=== PATIENT | male | born 1990 | race Caucasian/White ===

== ENCOUNTER 2016-04-13 19:37 | Emergency (ER) | payer BC ==
[~2016-04-13] VITALS: Ht 182.9 cm; Wt 95.3 kg
[2016-04-13 19:56] VITALS: BP 145/104
[2016-04-13 20:05] LABS: AMP/METHAMP Negative (Negative); BARBITURATES Negative (Negative); BENZODIAZEPINES Negative (Negative); COCAINE Negative (Negative); METHADONE Negative (Negative); OPIATES Negative (Negative); PCP Negative (Negative); THC Negative (Negative)
[2016-04-13 20:07] LABS: ABSOLUTE NEUTROPHILS 9.2 thou/uL (1.4-8.2); BASOPHILS 1.1 % (0.0-2.0); EOSINOPHILS 1.9 % (0.0-3.0); HEMATOCRIT 50.5 % (42.0-52.0); HEMOGLOBIN 17.8 gm/dL (14.0-18.0); LYMPHOCYTES 18.8 % (24.0-44.0); MCH 29.7 pg (26.0-34.0); MCHC 35.3 % (28.0-37.0); MCV 84.1 fL (80.0-100.0); MONOCYTES 6.1 % (1.0-8.0); PLATELET COUNT 418 thou/uL (150-400); POLYS 72.1 % (36.0-66.0); RDW 12.1 % (10.5-14.5); WBC 12.8 thou/uL (4.0-11.0)
[2016-04-13 20:10] LABS: MANUAL DIFF NO
[2016-04-13 20:15] LABS: CALCIUM 9.6 mg/dL (8.5-10.1); POTASSIUM 3.8 mmol/L (3.5-5.1)
[2016-04-13 20:21] LABS: ALBUMIN 4.9 g/dL (3.4-5.0); TOTAL BILIRUBIN 0.5 mg/dL (<0.1-1.0)
== END 2016-04-13 20:15 | disposition home or self-care (01) ==
LOC: ER 19:37
PROVIDERS: Emergency Medicine
DX: R45.851 Suicidal ideations (principal); F32.9 Major depressive disorder, single episode, unspecified; F10.99 Alcohol use, unspecified with unspecified alcohol-induced disorder; F12.10 Cannabis abuse, uncomplicated; F41.9 Anxiety disorder, unspecified